=== PATIENT | male | born 2000 | race Caucasian/White ===

== ENCOUNTER 2024-02-15 14:23 | Inpatient (IN) | payer OTHER ==
[2024-02-15 15:19] VITALS: BMI 22.5
[2024-02-15] MEDS ORDERED: MAGNESIUM HYDROX 2400MG/30ML ORAL SUSPENSION 30 ML CUP PO PRN (16:16)
[2024-02-15] MEDS ORDERED: ACETAMINOPHEN 325 MG TABLET (FP) PO PRN (16:16)
[2024-02-15] MEDS ORDERED: NICOTINE POLACRILEX 2 MG GUM BUC PRN (16:16)
[2024-02-15] MEDS ORDERED: NICOTINE POLACRILEX 2 MG LOZENGE BC PRN (16:16)
[2024-02-15] MEDS ORDERED: BISMUTH SUBSALICYLATE 524 MG/30 ML PO PRN (16:16)
[2024-02-15] MEDS ORDERED: NALOXONE HCL (KLOXXADO) 8 MG SPRAY NS PRN (16:16)
[2024-02-15] MEDS ORDERED: BENZONATATE 200 MG CAPSULE PO PRN (16:16)
[2024-02-15] MEDS ORDERED: guaiFENesin 600 MG TABLET.ER (FP) PO PRN (16:16)
[2024-02-15] MEDS ORDERED: LOPERAMIDE HCL 2 MG CAPSULE PO PRN (16:16)
[2024-02-15] MEDS ORDERED: NALOXONE HCL 0.4 MG/ML VIAL IM PRN (16:16)
[2024-02-15] MEDS ORDERED: BENZOCAINE/MENTHOL (CHLORASEPTIC ) LOZENGE MM PRN (16:16)
[2024-02-15] MEDS ORDERED: MAG HYDROX/AL HYDROX/SIMETH 30 ML UNIT-DOSE CUP PO PRN (16:16)
[2024-02-15] MEDS ORDERED: POLYETHYLENE GLYCOL (HEALTHYLAX) 3350 17 GM PACKET PO PRN (16:16)
[2024-02-15] MEDS: MELATONIN 5 MG TABLETS PO SCH (22:19)
[2024-02-15] MEDS: THIAMINE 100 MG TABLET PO SCH (22:19)
[2024-02-15] MEDS: METHOCARBAMOL 500 MG TABLET PO PRN (22:22)
[2024-02-15] MEDS: P-EPHED 60MG/TRIPROLIDI 2.5MG TABLET PO PRN (22:22)
[2024-02-15] MEDS: ONDANSETRON *ODT* 4 MG TABLET SL PRN (22:22)
[2024-02-15] MEDS: hydrOXYzine PAMOATE 25 MG CAPSULE (FP) PO PRN (22:22)
[2024-02-15] MEDS: DICYCLOMINE HCL 10 MG CAPSULE PO PRN (22:22)
[2024-02-16] MEDS ORDERED: cloNIDine HCL 0.1 MG TABLET PO PRN (10:01)
[2024-02-16] MEDS ORDERED: diazePAM 5 MG TABLET PO PRN (10:02)
[2024-02-16] MEDS: PRENATAL VITAMINS W/ FOLIC ACID TABLET (FP) PO SCH (10:42)
[2024-02-16] MEDS: methaDONE HCL 10 MG TABLET (FOR DETOX USE ONLY) PO ONE (10:44)
[2024-02-16 11:43] LABS: HEMATOCRIT 42.3 % (35.4-49); MCH 29.9 pg (25.7-33.7); MCHC 33.1 g/dl (32.0-35.9); MEAN CELL VOLUME 90.3 fl (80-96); MEAN PLT VOLUME 9.6 fl (7.5-11.1); PLATELET COUNT 246 10^3/uL (134-434); RBC 4.69 M/mm3 (4.00-5.60); RDW 14.6 % (11.9-15.9); WHITE BLOOD COUNT 6.9 K/mm3 (4.0-10.0)
[2024-02-16 11:53] LABS: CHLORIDE 107 mmol/L (98-107); POTASSIUM 4.7 mmol/L (3.5-5.1); SODIUM 137 mmol/L (136-145)
[2024-02-16 12:01] LABS: CALCIUM 9.3 mg/dL (8.5-10.1)
[2024-02-16 12:03] LABS: CREATININE 0.7 mg/dL (0.55-1.3)
[2024-02-16 12:04] LABS: ALBUMIN 3.7 g/dl (3.4-5.0); ANION GAP 4 mmol/L (4-13); BLOOD UREA NITROGEN 12.9 mg/dL (7-18); CO2 25 mmol/L (21-32); GLUCOSE,RANDOM 101 mg/dL (74-106)
[2024-02-16 12:07] LABS: SGOT/AST 20 U/L (15-37); SGPT/ALT 33 U/L (13-61)
[2024-02-16 12:08] LABS: BILIRUBIN,TOTAL 0.2 mg/dL (0.2-1)
[2024-02-16 12:09] LABS: ALK PHOS 57 U/L (45-117); TOT PROT 6.9 g/dl (6.4-8.2)
[2024-02-16 12:50] LABS: HIV INTERPRETATION NEGATIVE (NEGATIVE)
[2024-02-17] MEDS: IBUPROFEN 400 MG TABLET (FP) PO ONE (17:45)
[2024-02-17] MEDS ORDERED: QUEtiapine FUMARATE 100 MG TABLET (FP) PO SCH (22:00)
[2024-02-17] MEDS: QUEtiapine FUMARATE 50 MG TABLET PO SCH (22:05)
[2024-02-18] MEDS: methaDONE HCL 10 MG TABLET (FOR DETOX USE ONLY) PO ONE (10:32)
[2024-02-18] MEDS: IBUPROFEN 600 MG TABLET (FP) PO PRN (10:34)
[2024-02-19] MEDS ORDERED: ALBUTEROL SO4 HFA INHALER IH PRN (09:11)
[2024-02-19] MEDS: IBUPROFEN 400 MG TABLET (FP) PO PRN (22:03)
[2024-02-20] MEDS: methaDONE HCL 10 MG TABLET (FOR DETOX USE ONLY) PO ONE (09:17)
[2024-02-21 08:51] VITALS: BP 146/72; PULSE 74; RESP 16; TEMP 97.7
== END 2024-02-21 10:00 | disposition home or self-care (01) | DRG 773 ==
LOC: YASAS 14:23 → Y3N 18:16
PROVIDERS: ADMIT Allergy & Immunology; ATTEND Surgery
PROC: HZ2ZZZZ Detoxification Services for Substance Abuse Treatment (ICD-10-PCS; principal; 2024-02-15)
DX: F11.23 Opioid dependence with withdrawal (principal); F10.20 Alcohol dependence, uncomplicated; F14.20 Cocaine dependence, uncomplicated; F12.20 Cannabis dependence, uncomplicated; F17.210 Nicotine dependence, cigarettes, uncomplicated; F31.9 Bipolar disorder, unspecified; F19.24 Other psychoactive substance dependence with psychoactive substance-induced mood disorder; G47.00 Insomnia, unspecified; J45.909 Unspecified asthma, uncomplicated
CPT/HCPCS: 36415; 80053; 80305; 80307; 85027; 86780; 87389; 93005; 93010; Q0162

== ENCOUNTER 2024-04-03 13:14 | Inpatient (IN) | payer OTHER ==
[2024-04-03 16:52] VITALS: BMI 22.9
[2024-04-03] MEDS ORDERED: NALOXONE HCL 0.4 MG/ML VIAL IM PRN (17:31)
[2024-04-03] MEDS ORDERED: IBUPROFEN 600 MG TABLET (FP) PO PRN (17:31)
[2024-04-03] MEDS ORDERED: NALOXONE (NARCAN) HCL 4 MG/0.1 ML SPRAY NS PRN (17:31)
[2024-04-03] MEDS ORDERED: POLYETHYLENE GLYCOL (HEALTHYLAX) 3350 17 GM PACKET PO PRN (17:31)
[2024-04-03] MEDS ORDERED: guaiFENesin 600 MG TABLET.ER (FP) PO PRN (17:31)
[2024-04-03] MEDS ORDERED: ACETAMINOPHEN 325 MG TABLET (FP) PO PRN (17:31)
[2024-04-03] MEDS ORDERED: ONDANSETRON *ODT* 4 MG TABLET SL PRN (17:31)
[2024-04-03] MEDS ORDERED: BENZOCAINE/MENTHOL (CHLORASEPTIC ) LOZENGE MM PRN (17:31)
[2024-04-03] MEDS ORDERED: MAGNESIUM HYDROX 2400MG/30ML ORAL SUSPENSION 30 ML CUP PO PRN (17:31)
[2024-04-03] MEDS ORDERED: IBUPROFEN 400 MG TABLET (FP) PO PRN (17:31)
[2024-04-03] MEDS ORDERED: BENZONATATE 200 MG CAPSULE PO PRN (17:31)
[2024-04-03] MEDS ORDERED: DICYCLOMINE HCL 10 MG CAPSULE PO PRN (17:31)
[2024-04-03] MEDS ORDERED: LOPERAMIDE HCL 2 MG CAPSULE PO PRN (17:31)
[2024-04-03] MEDS ORDERED: NICOTINE POLACRILEX 4 MG GUM BUC PRN (17:31)
[2024-04-03] MEDS ORDERED: BISMUTH SUBSALICYLATE 524 MG/30 ML PO PRN (17:31)
[2024-04-03] MEDS ORDERED: MAG HYDROX/AL HYDROX/SIMETH 30 ML UNIT-DOSE CUP PO PRN (17:31)
[2024-04-03] MEDS ORDERED: ALBUTEROL SO4 HFA INHALER IH PRN (19:52)
[2024-04-03] MEDS ORDERED: cloNIDine HCL 0.1 MG TABLET PO PRN (20:07)
[2024-04-03] MEDS ORDERED: methaDONE HCL 10 MG TABLET (FOR DETOX USE ONLY) ONE (20:18)
[2024-04-03] MEDS: methaDONE HCL 10 MG TABLET (FOR DETOX USE ONLY) PO ONE (20:27)
[2024-04-03] MEDS: THIAMINE 100 MG TABLET PO SCH (21:07)
[2024-04-03] MEDS: MELATONIN 5 MG TABLETS PO SCH (21:07)
[2024-04-04 11:35] LABS: HEMATOCRIT 39.2 % (35.4-49); HEMOGLOBIN 12.9 GM/dL (11.7-16.9); MCH 29.4 pg (25.7-33.7); MCHC 32.8 g/dl (32.0-35.9); MEAN CELL VOLUME 89.7 fl (80-96); MEAN PLT VOLUME 10.1 fl (7.5-11.1); PLATELET COUNT 211 10^3/uL (134-434); RBC 4.37 M/mm3 (4.00-5.60); RDW 14.9 % (11.9-15.9); WHITE BLOOD COUNT 10.9 K/mm3 (4.0-10.0)
[2024-04-04 11:53] LABS: CHLORIDE 110 mmol/L (98-107); SODIUM 142 mmol/L (136-145)
[2024-04-04 12:14] LABS: ANION GAP 5 mmol/L (4-13); BLOOD UREA NITROGEN 10.9 mg/dL (7-18); CALCIUM 8.1 mg/dL (8.5-10.1); CO2 26 mmol/L (21-32); GLUCOSE,RANDOM 79 mg/dL (74-106)
[2024-04-04 12:17] LABS: SGPT/ALT 32 U/L (13-61)
[2024-04-04 12:18] LABS: CREATININE 0.7 mg/dL (0.55-1.3); SGOT/AST 23 U/L (15-37)
[2024-04-04 12:19] LABS: BILIRUBIN,TOTAL 0.1 mg/dL (0.2-1); TOT PROT 5.8 g/dl (6.4-8.2)
[2024-04-04 12:20] LABS: ALK PHOS 56 U/L (45-117)
[2024-04-04] MEDS: NICOTINE 21 MG/24 HOURS TOPICAL PATCH TD SCH (12:50)
[2024-04-04] MEDS: PRENATAL VITAMINS W/ FOLIC ACID TABLET (FP) PO SCH (12:50)
[2024-04-04] MEDS: QUEtiapine FUMARATE 50 MG TABLET PO SCH (21:59)
[2024-04-04] MEDS: METHOCARBAMOL 500 MG TABLET PO PRN (21:59)
[2024-04-05] MEDS: methaDONE HCL 10 MG TABLET (FOR DETOX USE ONLY) PO ONE (10:10)
[2024-04-05 12:00] LABS: BASO % 0.4 % (0-2.0); EOS % 2.1 % (0-4.5); HEMOGLOBIN 13.3 GM/dL (11.7-16.9); LYMPH % 24.7 % (8-40); MCH 29.7 pg (25.7-33.7); MCHC 33.4 g/dl (32.0-35.9); MEAN CELL VOLUME 89.2 fl (80-96); MEAN PLT VOLUME 9.9 fl (7.5-11.1); MONO % 7.8 % (3.8-10.2); PLATELET COUNT 211 10^3/uL (134-434); RBC 4.48 M/mm3 (4.00-5.60); RDW 14.7 % (11.9-15.9); WHITE BLOOD COUNT 9.8 K/mm3 (4.0-10.0)
[2024-04-05] MEDS: hydrOXYzine PAMOATE 25 MG CAPSULE (FP) PO PRN (16:16)
[2024-04-07 06:17] VITALS: RESP 18
[2024-04-07 09:03] VITALS: BP 141/80; PULSE 80; TEMP 97.6
[2024-04-07] MEDS: methaDONE HCL 10 MG TABLET (FOR DETOX USE ONLY) PO ONE (09:43)
== END 2024-04-07 12:30 | disposition home or self-care (01) | DRG 773 ==
LOC: YASAS 13:14 → Y3N 20:43
PROVIDERS: ADMIT Allergy & Immunology; ATTEND Surgery
PROC: HZ2ZZZZ Detoxification Services for Substance Abuse Treatment (ICD-10-PCS; principal; 2024-04-03)
DX: F11.23 Opioid dependence with withdrawal (principal); F14.20 Cocaine dependence, uncomplicated; F12.20 Cannabis dependence, uncomplicated; F17.210 Nicotine dependence, cigarettes, uncomplicated; F31.9 Bipolar disorder, unspecified; F19.24 Other psychoactive substance dependence with psychoactive substance-induced mood disorder
CPT/HCPCS: 36415; 80053; 80305; 80307; 85025; 85027; 86780; 93005; 93010